=== PATIENT | male | born 1955 | race Caucasian/White ===

== ENCOUNTER 2018-03-23 08:05 | Day surgery (SDC) | payer OTHER ==
[2018-03-23] MEDS ORDERED: TROPICAMIDE 1% 15 ML OPH OPER (09:00)
[2018-03-23] MEDS ORDERED: SOD CHLORIDE 0.9% 1,000 ML IV (09:00)
[2018-03-23] MEDS: PHENYLephrine 2.5% 15 ML OPH OPER (09:30)
[2018-03-23] MEDS: LACTATED RINGER'S 1,000 ML IV* (09:31)
[2018-03-23] MEDS: DICLOFENAC 0.1% 2.5 ML OPH OPER (09:31)
[2018-03-23] MEDS: MOXIFLOXACIN 0.5% 3 ML OPH OPER (09:31)
[2018-03-23] MEDS: TROPICAMIDE 1% 3 ML OPH OPER (09:36)
[2018-03-23] MEDS: CYCLOPENTOLATE 1% 2 ML OPH OPER (09:36)
[2018-03-23 10:23] LABS: ADD MAN DIFF? NO
[2018-03-23 10:29] LABS: BASOPHILS % 0.6 % (0.0-2.0); EOSINOPHILS # 0.1 10^3/ul (0.0-0.5); EOSINOPHILS % 2.6 % (0.0-7.0); HEMATOCRIT 38.4 % (42.0-52.0); HEMOGLOBIN 11.9 g/dl (14.0-18.0); LYMPHOCYTES # 1.8 10^3/ul (0.8-2.9); LYMPHOCYTES % 33.2 % (15.0-51.0); MEAN CORPUSCULAR HEMOGLOBIN 26.5 pg (29.0-33.0); MEAN CORPUSCULAR VOLUME 85.5 fl (82.0-101.0); MEAN PLATELET VOLUME 10.2 fl (7.4-10.4); MONOCYTE # 0.5 10^3/ul (0.3-0.9); MONOCYTES % 8.6 % (0.0-11.0); NEUTROPHILS % 54.6 % (39.0-77.0); PLATELET COUNT 224 10^3/UL (140-415); RED BLOOD COUNT 4.49 10^6/ul (4.70-6.10); RED CELL DISTRIBUTION WIDTH 14.6 % (11.5-14.5)
[2018-03-23 10:29] LABS: WHITE BLOOD COUNT 5.5 10^3/ul (4.8-10.8)
[2018-03-23] MEDS ORDERED: EPINEPHrine 1 MG INJ (10:39)
[2018-03-23] MEDS ORDERED: TOBRAMYCIN/DEXAMETH 3.5 GM OPH OINT (10:39)
[2018-03-23] MEDS ORDERED: LIDOCAINE 1% (MPF) 10 ML INJ (10:39)
[2018-03-23 10:47] LABS: INR 0.95; PARTIAL THROMBOPLASTIN TIME 28.1 Sec (25.0-35.0); PROTIME 12.8 Sec (11.9-14.9)
[2018-03-23 10:53] LABS: ALANINE AMINOTRANSFERASE 15 IU/L (13-69); ALBUMIN 3.4 g/dl (3.3-4.9); ALBUMIN/GLOBULIN RATIO 1.13; ALKALINE PHOSPHATASE 57 IU/L (42-121); ANION GAP 12 (8-16); ASPARTATE AMINO TRANSFERASE 19 IU/L (15-46); BILIRUBIN,INDIRECT 0.4 mg/dl (0-1.1); BILIRUBIN,TOTAL 0.4 mg/dl (0.2-1.3); BLOOD UREA NITROGEN 26 mg/dl (7-20); CALCIUM 8.8 mg/dl (8.4-10.2); CARBON DIOXIDE 29 mmol/L (21-31); CHLORIDE 110 mmol/L (97-110); CREATININE 1.41 mg/dl (0.61-1.24); GLUCOSE 103 mg/dl (70-220); POTASSIUM 3.5 mmol/L (3.5-5.1); SODIUM 147 mmol/L (135-144); TOTAL PROTEIN 6.4 g/dl (6.1-8.1)
[2018-03-23] MEDS ORDERED: HYDROmorphONE 1 MG/5 ML IV SYRINGE IV (11:00)
[2018-03-23] MEDS ORDERED: DIPHENHYDRAMINE 50 MG INJ IV (11:00)
[2018-03-23] MEDS ORDERED: FENTAnyl 50 MCG/ML VIAL IV (11:00)
[2018-03-23] MEDS ORDERED: LABETALOL HCL 20MG INJ IV (11:00)
[2018-03-23] MEDS ORDERED: OXYCODONE/ACETAMINOPHEN (5/325) TAB PO (11:00)
[2018-03-23] MEDS ORDERED: MEPERIDINE 25 MG INJ IV (11:00)
[2018-03-23] MEDS ORDERED: PROCHLORPERAZINE 10 MG INJ IV (11:00)
[2018-03-23] MEDS ORDERED: ONDANSETRON 4 MG INJ IV (11:00)
[2018-03-23] MEDS: TETRACAINE 0.5% 4 ML OPH RIGHT EYE (11:00)
[2018-03-23] MEDS: LIDOCAINE 1% (MPF) 10 ML INJ INJ (11:00)
[2018-03-23] MEDS ORDERED: hydrALAzine 20 MG INJ IV (11:00)
[2018-03-23] MEDS ORDERED: MIDAZOLAM 1 MG/ML 2 ML INJ (11:05)
[2018-03-23] MEDS ORDERED: FENTAnyl 50 MCG/ML VIAL (11:05)
[2018-03-23] MEDS: TOBRAMYCIN/DEXAMETH 3.5 GM OPH OINT OPER (11:40)
[2018-03-23] MEDS ORDERED: TETRACAINE 0.5% 4 ML OPH (11:58)
== END 2018-03-23 13:15 | disposition home or self-care (01) ==
LOC: SDS 08:05
DX: H25.89 Other age-related cataract (principal); I10 Essential (primary) hypertension; E66.01 Morbid (severe) obesity due to excess calories; Z68.41 Body mass index [BMI] 40.0-44.9, adult; E78.2 Mixed hyperlipidemia
CPT/HCPCS: 66984; 80053; 85025; 85610; 85730